=== PATIENT | female | born 1955 | race Hispanic/Latino ===

== ENCOUNTER → 2017-04-17 | Outpatient (CLI) | payer OTHER | END | disposition home or self-care (01) | LOC: RAH 12:58 | PROVIDERS: ATTEND Internal Medicine | DX: E04.2 Nontoxic multinodular goiter (principal) | CPT/HCPCS: 76536 ==

== ENCOUNTER → 2017-04-24 | Outpatient (CLI) | payer OTHER ==
[2017-04-24 08:29] LABS: INR 1.02 (0.85-1.15); PARTIAL THROMBOPLASTIN TIME 25.4 SEC (26.3-35.5); PROTHROMBIN TIME 10.7 SEC (9.6-11.6)
== END | disposition home or self-care (01) ==
LOC: RAH 07:29
PROVIDERS: ATTEND Internal Medicine
DX: E04.1 Nontoxic single thyroid nodule (principal); E78.5 Hyperlipidemia, unspecified; E11.9 Type 2 diabetes mellitus without complications; I25.10 Atherosclerotic heart disease of native coronary artery without angina pectoris; I11.9 Hypertensive heart disease without heart failure; I65.22 Occlusion and stenosis of left carotid artery; Z87.891 Personal history of nicotine dependence; Z98.51 Tubal ligation status; Z79.01 Long term (current) use of anticoagulants; Z95.5 Presence of coronary angioplasty implant and graft; Z98.890 Other specified postprocedural states
CPT/HCPCS: 36415; 60100; 76942; 85610; 85730; 88307

== ENCOUNTER 2019-10-21 | Inpatient (IN) | payer OTHER | END 2019-10-23 05:43 | disposition left against medical advice (07) | DRG 179 | PROVIDERS: ADMIT Hospitalist ==

== ENCOUNTER 2019-10-25 18:13 | Inpatient (IN) | payer OTHER ==
[2019-10-25] MEDS ORDERED: DOXYCYCLINE 100MG+NS 250ML IV SCH (19:15)
[2019-10-25] MEDS ORDERED: ERGOCALCIFEROL (VITAMIN D2) 50,000 UNIT CAPSULE PO ONE (19:15)
[2019-10-25] MEDS ORDERED: CEFTRIAXONE SODIUM 1 GM IVP SCH (19:15)
[2019-10-25] MEDS ORDERED: LACTULOSE 20 GM/30 ML UDCUP PO PRN (19:15)
[2019-10-25] MEDS ORDERED: ONDANSETRON HCL 4 MG/2 ML VIAL IV PRN (19:15)
[2019-10-25] MEDS ORDERED: ACETAMINOPHEN 325 MG TAB PO PRN ×2 (19:15)
[2019-10-25] MEDS ORDERED: DOXYCYCLINE HYCLATE 100 MG TABLET PO ONE (19:45)
[2019-10-25] MEDS ORDERED: ERGOCALCIFEROL (VITAMIN D2) 50,000 UNIT CAPSULE ONE (19:45)
[2019-10-25 19:47] LABS: BASOPHILS % (AUTO) 0.1 % (0.0-5.0); HEMATOCRIT 46.4 % (36-48); LYMPHOCYTES % (AUTO) 16.3 % (21.0-51.0); MEAN CORPUSCULAR HEMOGLOBIN 28.3 pg (27.0-33.0); MEAN CORPUSCULAR HGB CONC 32.5 g/dL (32.0-36.0); MEAN CORPUSCULAR VOLUME 86.9 fL (79-99); MONOCYTES % (AUTO) 6.7 % (3.0-13.0); NEUTROPHILS % (AUTO) 76.5 % (40.0-77.0); PLATELET COUNT (AUTO) 213 K/uL (130-400); RED BLOOD CELL COUNT(AUTO) 5.34 MIL/uL (4.00-5.50); RED CELL DISTRIBUTION WIDTH 13.1 % (11.0-15.5); WHITE BLOOD COUNT (AUTO) 8.1 K/uL (4.8-10.8)
[2019-10-25] MEDS ORDERED: HYDRALAZINE HCL 20 MG/ML VIAL IV PRN (20:00)
[2019-10-25 20:05] LABS: INR 1.02 (0.85-1.15); PARTIAL THROMBOPLASTIN TIME 27.1 SEC (26.3-35.5)
[2019-10-25 20:08] LABS: ALBUMIN 2.4 g/dL (3.5-5.0); BILIRUBIN,TOTAL 1.3 mg/dL (0.2-1.0); CREATININE 0.3 mg/dL (0.5-1.5); POTASSIUM 4.8 mmol/L (3.5-5.1); TOTAL PROTEIN, SERUM 6.5 g/dL (6.0-8.3)
[2019-10-25 20:17] LABS: B-TYPE NATRIURETIC PEPTIDE 22 pg/mL (0-100)
[2019-10-25] MEDS ORDERED: DOXYCYCLINE 100MG+NS 250ML 250 ML IV SCH (21:00)
[2019-10-25] MEDS ORDERED: FAMOTIDINE 20MG TAB 20 MG TAB PO SCH (21:00)
[2019-10-25] MEDS ORDERED: INSULIN HUMULIN R 100 UNIT/ML 3ML SQ SCH (21:00)
[2019-10-25] MEDS ORDERED: METHYLPREDNISOLONE SOD SUCC 40MG/ML 1ML IVP SCH (21:00)
[2019-10-25 21:31] LABS: ABG BASE EXCESS 2.3 mmol/L (-2.0-3.0); ABG OXYGEN SATURATION 92.3 % (95.0-99.0); ABG PCO2 33 mmHg (32-45)
[2019-10-25] MEDS ORDERED: IOHEXOL-350 75 ML VIAL IV ONE (22:17)
[2019-10-26] MEDS ORDERED: CEFTRIAXONE SODIUM 500 MG VIAL ONE (07:27)
[2019-10-26] MEDS ORDERED: METHYLPREDNISOLONE SOD SUCC 40MG/ML 1ML ONE ×3 (07:27→14:12)
[2019-10-26] MEDS ORDERED: DOXYCYCLINE HYCLATE 100 MG TABLET PO ONE ×2 (07:28→21:14)
[2019-10-26 08:52] LABS: CRP QUANTITATIVE 143.5 mg/L (0.00-9.0)
[2019-10-26] MEDS ORDERED: ZINC SULFATE 220 CAPSULE PO SCH (09:00)
[2019-10-26] MEDS ORDERED: ASCORBIC ACID 500 MG TAB PO SCH (09:00)
[2019-10-26] MEDS ORDERED: ENOXAPARIN SODIUM 40 MG/0.4 ML SYRINGE SQ SCH (09:00)
[2019-10-26] MEDS ORDERED: ZINC SULFATE 220 CAPSULE ONE (11:39)
[2019-10-26] MEDS ORDERED: ASCORBIC ACID 500 MG TAB ONE (11:39)
[2019-10-26] MEDS ORDERED: ENOXAPARIN SODIUM 40 MG/0.4 ML SYRINGE SQ ONE (11:40)
[2019-10-26] MEDS ORDERED: FAMOTIDINE/PF 20 MG/2 ML VIAL IV ONE ×2 (11:40→21:12)
--- NOTE | 2019-10-26 14:15 | NUR ---
CALL TO BOTH PATIENT & SPOUSE NO ANSWER AT 1400, REC'D CALL BACK PATIENT STATES ACTIVE, INDEPENDENT, DRIVES, NO DME OR HOME SERVICES LIVES WITH SPOUSE VERA CARPIO WHO CAN SUPPLY TRANSPORT, FOLLOWS WITH DR. BRANDON KO IS HOME, IZZY TO FOLLOW Addendum: 10/27/19 at 0815 by KEVEN STUBBS RN CM Amended: Links added.
--- NOTE | 2019-10-26 15:10 | NUR ---
phone call no answer
[2019-10-26] MEDS ORDERED: METHYLPREDNISOLONE SOD SUCC 125MG/2ML VIAL ONE (21:12)
[2019-10-26] MEDS ORDERED: CEFTRIAXONE SODIUM 1 GM ONE (21:12)
[2019-10-26] MEDS ORDERED: INSULIN HUMULIN R 100 UNIT/ML 3ML ONE (21:13)
[2019-10-27 05:40] LABS: BASOPHILS % (AUTO) 0.2 % (0.0-5.0); HEMATOCRIT 49.8 % (36-48); LYMPHOCYTES % (AUTO) 14.1 % (21.0-51.0); MEAN CORPUSCULAR HEMOGLOBIN 27.8 pg (27.0-33.0); MEAN CORPUSCULAR HGB CONC 31.9 g/dL (32.0-36.0); MEAN CORPUSCULAR VOLUME 87.2 fL (79-99); MONOCYTES % (AUTO) 6.7 % (3.0-13.0); NEUTROPHILS % (AUTO) 78.4 % (40.0-77.0); PLATELET COUNT (AUTO) 292 K/uL (130-400); RED BLOOD CELL COUNT(AUTO) 5.71 MIL/uL (4.00-5.50); RED CELL DISTRIBUTION WIDTH 12.7 % (11.0-15.5); WHITE BLOOD COUNT (AUTO) 5.2 K/uL (4.8-10.8)
[2019-10-27 06:04] LABS: ALBUMIN 2.7 g/dL (3.5-5.0); BILIRUBIN,TOTAL 0.6 mg/dL (0.2-1.0); CREATININE 0.8 mg/dL (0.5-1.5); POTASSIUM 4.1 mmol/L (3.5-5.1); TOTAL PROTEIN, SERUM 7.9 g/dL (6.0-8.3)
[2019-10-27 06:09] LABS: CRP QUANTITATIVE 80.8 mg/L (0.00-9.0)
[2019-10-27] MEDS ORDERED: DEXAMETHASONE SOD PHOSPHATE 10MG/ML 1ML VIAL IV SCH (09:00)
[2019-10-27] MEDS ORDERED: DEXAMETHASONE 4 MG TAB PO SCH (09:00)
[2019-10-27] MEDS ORDERED: DOXYCYCLINE 100MG+NS 250ML 250 ML IV ONE (09:43)
[2019-10-27] MEDS ORDERED: DEXAMETHASONE SOD PHOSPHATE 10MG/ML 1ML VIAL ONE (09:44)
[2019-10-27] MEDS ORDERED: ZINC SULFATE 220 CAPSULE ONE (09:44)
[2019-10-27] MEDS ORDERED: ASCORBIC ACID 500 MG TAB ONE (09:44)
[2019-10-27] MEDS ORDERED: INSULIN GLARGINE 100 UNITS/ML 10 ML VIAL SQ SCH (09:45)
[2019-10-27] MEDS ORDERED: ENOXAPARIN SODIUM 40 MG/0.4 ML SYRINGE SQ ONE (09:45)
[2019-10-27] MEDS ORDERED: CEFTRIAXONE SODIUM 1 GM ONE (09:45)
[2019-10-27] MEDS ORDERED: FAMOTIDINE/PF 20 MG/2 ML VIAL IV ONE (09:46)
[2019-10-27] MEDS ORDERED: INSULIN HUMULIN R 100 UNIT/ML 3ML ONE ×2 (11:48→15:52)
--- NOTE | 2019-10-27 16:19 | NUR ---
Phone call Patient update given to Katie Mathias, daughter. Opportunity to ask question given. Questions answered.
[2019-10-28] MEDS ORDERED: PREDNISONE 20 MG TABLET PO SCH (09:00)
== END 2019-10-27 18:02 | disposition left against medical advice (07) | DRG 177 ==
LOC: EDH 18:13 → EDHIP 19:10 → UNDODEPER 10-27 21:11
PROVIDERS: ADMIT Hospitalist; ATTEND Hospitalist
DX: U07.1 COVID-19 (principal); J12.89 Other viral pneumonia; J96.01 Acute respiratory failure with hypoxia; I25.10 Atherosclerotic heart disease of native coronary artery without angina pectoris; I10 Essential (primary) hypertension; E11.65 Type 2 diabetes mellitus with hyperglycemia; E78.5 Hyperlipidemia, unspecified; I25.2 Old myocardial infarction; Z95.5 Presence of coronary angioplasty implant and graft
CPT/HCPCS: 36415; 36600; 71045; 71275; 80053; 82803; 82948; 83615; 83880; 84484; 85025; 85378; 85610; 85730; 86140; G0378; J0696; J1100; J1650; J1815; J2920; J2930; J3490; Q9967; U0003